=== PATIENT | female | born 1995 | race Native Hawaiian/Other Pacific Islander ===

== ENCOUNTER 2016-03-01 15:06 | Emergency (ER) | payer OTHER ==
[~2016-03-01] VITALS: Ht 157.5 cm; Wt 103.9 kg
[~2016-03-01 15:06] MED LIST: MEDR150I3 IM; ZANTAC 75 PO
[2016-03-01 15:31] VITALS: BP 128/62; TEMP 98.8
== END 2016-03-01 15:34 | disposition home or self-care (01) ==
LOC: ED 15:06
DX: K08.89 Other specified disorders of teeth and supporting structures (principal); K04.7 Periapical abscess without sinus
CPT/HCPCS: 99281

== ENCOUNTER 2016-03-26 16:27 | Emergency (ER) | payer OTHER ==
[~2016-03-26] VITALS: Ht 157.5 cm; Wt 108.9 kg
[2016-03-26] MEDS ORDERED: BACTRIM1 TAB PO (17:29)
[2016-03-26] MEDS ORDERED: ACET-689 PO (17:29)
[2016-03-26] MEDS ORDERED: CLINDAMYCIN150 MG OR (17:29)
[2016-03-26 17:40] VITALS: BP 150/84; TEMP 98.5
== END 2016-03-26 17:40 | disposition home or self-care (01) ==
LOC: ED 16:27
DX: L03.316 Cellulitis of umbilicus (principal)
CPT/HCPCS: 81025; 99282

== ENCOUNTER 2016-05-15 19:37 | Emergency (ER) | payer OTHER ==
[~2016-05-15] VITALS: Ht 157.5 cm; Wt 99.8 kg
[~2016-05-15 19:37] MED LIST changes: +ACET-689 PO; +BACTRIM1 TAB PO; +CLINDAMYCIN150 MG OR
[2016-05-15 20:59] VITALS: BP 122/83; TEMP 98.7
== END 2016-05-15 21:00 | disposition home or self-care (01) ==
LOC: ED 19:37
DX: O23.41 Unspecified infection of urinary tract in pregnancy, first trimester (principal); Z3A.01 Less than 8 weeks gestation of pregnancy
CPT/HCPCS: 36415; 81000; 84702; 87077; 87086; 87088; 87186; 99283

== ENCOUNTER 2016-05-16 20:30 | Emergency (ER) | payer OTHER ==
[~2016-05-16] VITALS: Ht 157.5 cm; Wt 99.8 kg
[2016-05-16 21:18] LABS: PLATELET COUNT 167 K/uL (152-353)
[2016-05-16 22:03] VITALS: BP 120/74; TEMP 98
== END 2016-05-16 22:04 | disposition home or self-care (01) ==
LOC: ED 20:30
PROVIDERS: Emergency Medicine
DX: R10.2 Pelvic and perineal pain (principal); N39.0 Urinary tract infection, site not specified
CPT/HCPCS: 36415; 81025; 84702; 85027; 99283

== ENCOUNTER 2016-06-30 17:04 | Emergency (ER) | payer OTHER ==
[~2016-06-30] VITALS: Ht 157.5 cm; Wt 95.7 kg
[2016-06-30 17:36] VITALS: BP 122/78; TEMP 99.1
== END 2016-06-30 17:37 | disposition home or self-care (01) ==
LOC: ED 17:04
DX: L02.92 Furuncle, unspecified (principal)
CPT/HCPCS: 99282

== ENCOUNTER 2016-09-29 17:08 | Emergency (ER) | payer OTHER ==
[~2016-09-29] VITALS: Ht 157.5 cm; Wt 96.2 kg
[2016-09-29 17:45] VITALS: BP 109/74; TEMP 98.5
== END 2016-09-29 17:45 | disposition home or self-care (01) ==
LOC: ED 17:08
DX: H10.89 Other conjunctivitis (principal); B99.9 Unspecified infectious disease
CPT/HCPCS: 99281